=== PATIENT | male | born 1935 | race Caucasian/White ===

== ENCOUNTER 2019-09-17 13:37 | Emergency (ER) | payer OTHER ==
[~2019-09-17] VITALS: Ht 167.6 cm; Wt 77.5 kg
[2019-09-17 13:41] VITALS: BP 154/99
== END 2019-09-17 15:33 | disposition home or self-care (01) ==
LOC: EMS 13:42
DX: L98.8 Other specified disorders of the skin and subcutaneous tissue (principal)